=== PATIENT | female | born 1955 | race Caucasian/White ===

== ENCOUNTER → 2017-02-14 | Outpatient (CLI) | payer OTHER ==
[~2017-02-14] MED LIST: ASPI81TA28 PO; CALC500C70 PO; CEPH500T PO; COLE1TAB4 PO; CRD200 PO; CYCL10TA7 PO; FLUT1INH PO; FSM70 PO; GABA-112 PO; HYDR-4383 PO; KFL500 PO; LPT40 PO; LSX20 PO; MELO15TA4 PO; OMEP20CA9 PO; POTA-74 PO; SNTO30 EXT; TPRSR/50 PO; VNTHFA/IN INH; ZOLP10TA6 PO
--- NOTE | 2017-02-14 11:44 | DIAGNOSTIC IMAGING REPORT ---
CT OF THE LUMBAR SPINE WITHOUT CONTRAST CT DOSE: 2196.12 mGy.cm CLINICAL HISTORY: Lumbar spine pain. TECHNIQUE: Axial images of the lumbar spine were obtained without IV contrast. Sagittal and coronal reconstructions were viewed. COMPARISON STUDY: Lumbar spine radiographs August 27, 2016. FINDINGS: For purposes of numbering on this exam, the L5-S1 disc space is assigned to axial image 294 of 405. There is mild dextroscoliosis of the lumbar spine. There is moderate loss of height of the inferior endplate of T12 and mild loss of height of the superior endplate of L1. This is chronic and similar to exam of September 26, 2016. There is no acute lumbar spine fracture. No suspicious lesion is present. There is vacuum disc phenomenon at multiple levels with disc space narrowing, osteophytosis and facet arthrosis. The central canal and neural foramen are suboptimally assessed by CT technique. Paravertebral soft tissues are unremarkable. T12-L1: Note is made of disc space narrowing with vacuum disc phenomenon. There is a disc bulge with superimposed right paracentral disc osteophyte complex which is partially calcified. There is moderate narrowing of the right lateral recess. There is mild during of the central canal. L1-L2: There is disc space narrowing with mild disc bulge. There is suspected mild narrowing of the central canal. L2-L3: There is disc space narrowing with disc bulge, ligamentous hypertrophy and mild facet arthrosis. There is mild during of the central canal, lateral recesses and neural foramen. L3-L4: There is disc space narrowing with disc bulge. There is mild narrowing of the central canal, lateral recesses and the neural foramen. L4-L5: There is disc space narrowing with disc bulge. There is mild to moderate narrowing of the central canal, lateral recesses and left neural foramen with moderate narrowing of the right neural foramen. L5-S1: The central canal and neural foramen are patent. IMPRESSION: 1. No acute lumbar spine fracture or subluxation. 2. Moderate loss of height of the inferior endplate of T12 and mild loss of height of the right aspect of the superior plate of L1 which is chronic. 3. Right paracentral disc osteophyte complex at T12-L1 that results in mild to moderate during of the right lateral recess. 4. Suboptimal evaluation of the central canal given CT technique. Multiple disc bulges with mild to moderate central canal stenosis at L4-L5. 5. Mild dextroscoliosis of the lumbar spine. Electronically signed by: Pramod Lockett M.D. 02/14/2017 11:43 AM Dictated Date/Time: 02/14/2017 11:32 AM
== END | disposition home or self-care (01) ==
LOC: C.CTS 10:45
PROVIDERS: ATTEND Orthopaedic Surgery Orthopaedic Surgery of the Spine
DX: M54.5 Low back pain (principal)

== ENCOUNTER → 2017-02-14 | Outpatient (CLI) | payer OTHER ==
[2017-02-14 12:03] LABS: BLOOD UREA NITROGEN 22 mg/dl (7-18); BUN/CREATININE RATIO 19.9 (10-20); GLUCOSE 84 mg/dl (70-99)
[2017-02-14 12:04] LABS: ALT/SGPT 31 U/L (12-78); CALCIUM 8.7 mg/dl (8.5-10.1); CARBON DIOXIDE 26 mmol/L (21-32); CHLORIDE 108 mmol/L (98-107); CHOLESTEROL 147 mg/dl (0-200); POTASSIUM 3.9 mmol/L (3.5-5.1); SODIUM 144 mmol/L (136-145); TRIGLYCERIDES 268 mg/dl (0-150); VERY LOW DENSITY LIPOPROT CALC 54 mg/dl
[2017-02-14 12:09] LABS: HEMATOCRIT 44.6 % (37-47); MEAN CELL VOLUME 93.7 fL (80-100); MEAN CORPUSCULAR HEMOGLOBIN 31.5 pg (25-34); MEAN CORPUSCULAR HGB CONC 33.6 g/dl (32-36); MEAN PLATELET VOLUME 10.9 fL (7.4-10.4); PLATELET COUNT 221 K/uL (130-400); RED BLOOD COUNT 4.76 M/uL (4.2-5.4); WHITE BLOOD COUNT 9.49 K/uL (4.8-10.8)
[2017-02-14 12:15] LABS: ALB/GLOB RATIO 1.2 (0.9-2); ALKALINE PHOSPHATASE 78 U/L (45-117); AST/SGOT 29 U/L (15-37); CHOLESTEROL/HDL RATIO 3.7; HDL CHOLESTEROL 40 mg/dl; LDL CHOLESTEROL CALCULATED 53 mg/dl
== END | disposition home or self-care (01) ==
LOC: C.LAB 10:49
DX: Z86.74 Personal history of sudden cardiac arrest (principal); I10 Essential (primary) hypertension; C11.9 Malignant neoplasm of nasopharynx, unspecified

== ENCOUNTER 2017-10-25 20:47 | Emergency (ER) | payer OTHER ==
[~2017-10-25] VITALS: Ht 167.6 cm; Wt 100.0 kg
[~2017-10-25 20:47] MED LIST changes: -CEPH500T PO; -KFL500 PO
[2017-10-25 20:52] VITALS: TEMP 36.6; Ht 167.6 cm; Wt 100.0 kg
[2017-10-25] MEDS ORDERED: GABA1CAP5 PO (21:11)
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
--- NOTE | 2017-10-25 22:07 | DIAGNOSTIC IMAGING REPORT ---
R KNEE 3 VIEWS CLINICAL HISTORY: Bilateral knee pain following recent fall. COMPARISON: Right knee radiographs July 22, 2015. FINDINGS: Alignment of the right knee is anatomic. There is apparent osteopenia which could be technical. A small to moderate right knee joint effusion is present. There is moderate medial compartment joint space narrowing with osteophytosis. IMPRESSION: 1. No acute fracture. 2. Small to moderate right knee joint effusion. 3. Moderate osteoarthritis within the medial and patellofemoral compartments. Electronically signed by: Pramod Lockett M.D. 10/25/2017 10:05 PM Dictated Date/Time: 10/25/2017 10:03 PM
--- NOTE | 2017-10-25 22:09 | DIAGNOSTIC IMAGING REPORT ---
L KNEE 3 VIEWS CLINICAL HISTORY: Bilateral knee pain following fall. COMPARISON: None FINDINGS: Alignment of left knee is anatomic. No acute fracture or joint effusion. Joint spaces are preserved. IMPRESSION: No acute fracture or joint effusion of the left knee. Electronically signed by: Pramod Lockett M.D. 10/25/2017 10:08 PM Dictated Date/Time: 10/25/2017 10:05 PM
[2017-10-25] MEDS ORDERED: OXYC1TAB3 PO (22:37)
[2017-10-25] MEDS ORDERED: OXYCODONE IR HOME PACK PO ONE (22:45)
[2017-10-25 23:13] VITALS: BP 130/76; PULSE 62; O2SAT 92
== END 2017-10-25 23:03 | disposition home or self-care (01) ==
LOC: C.EDB 20:49 → C.EDD 23:03
DX: M25.561 Pain in right knee (principal); M25.562 Pain in left knee; I25.10 Atherosclerotic heart disease of native coronary artery without angina pectoris; E78.5 Hyperlipidemia, unspecified; Z79.82 Long term (current) use of aspirin; Z79.899 Other long term (current) drug therapy; Z86.14 Personal history of Methicillin resistant Staphylococcus aureus infection; Z86.79 Personal history of other diseases of the circulatory system; Z82.49 Family history of ischemic heart disease and other diseases of the circulatory system; Z83.79 Family history of other diseases of the digestive system; W10.9XXA Fall (on) (from) unspecified stairs and steps, initial encounter; F17.200 Nicotine dependence, unspecified, uncomplicated